=== PATIENT | male | born 1960 | race Two or more races ===

== ENCOUNTER 2021-09-20 20:05 | Emergency (ER) | payer OTHER ==
[~2021-09-20] VITALS: Ht 165.1 cm; Wt 68.0 kg
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
--- NOTE | 2021-09-20 20:29 | NUR ---
BLANKET FOLDER AT BEDSIDE FOR WOUND CLEANING
[2021-09-20] MEDS ORDERED: TDAP [DIPH/PERTUSSIS/TET] 0.5 ML VIAL IM ONE (20:30)
[2021-09-20] MEDS ORDERED: BACITRACIN ZINC OINT PACKET 1 EA PACKET TP ONE (20:30)
[2021-09-20] MEDS: TDAP [DIPH/PERTUSSIS/TET] 0.5 ML VIAL IM ONE (20:34)
[2021-09-20] MEDS: BACITRACIN ZINC OINT PACKET 1 EA PACKET TP ONE (20:35)
[2021-09-20] MEDS: LIDOCAINE 1% INJ 50 ML MDV IJ ONE (20:35)
[2021-09-20] MEDS ORDERED: ONDANSETRON HCL/PF 4 MG/2 ML VIAL ONE (20:56)
[2021-09-20] MEDS ORDERED: PIPERACILLIN /TAZOBACTAM 3.375 G VIAL IV ONE (20:57)
[2021-09-20] MEDS ORDERED: MORPHINE SULFATE INJ 4 MG/ML DISP.SYRIN ONE (20:57)
--- NOTE | 2021-09-20 21:00 | NUR ---
IV LINE ESTABLISHED, LAC 20G
[2021-09-20] MEDS: IV NS 0.9% 1,000 ML IV ONE (21:17)
[2021-09-20] MEDS: PIPERACILLIN /TAZOBACTAM 3.375 G in IV D5W 50 ML IV ONE (21:18)
[2021-09-20] MEDS: MORPHINE SULFATE INJ 2 MG/ML DISP.SYRIN IV ONE (21:18)
[2021-09-20] MEDS: ONDANSETRON HCL/PF 4 MG/2 ML VIAL IV ONE (21:18)
--- NOTE | 2021-09-20 21:29 | NUR ---
PT AMBULATED TO BATHROOM, STEADY GAIT NOTED
--- NOTE | 2021-09-20 22:10 | NUR ---
IV removed. Catheter intact and site benign. Pressure and 4x4 applied to site. No bleeding noted.
[2021-09-20] MEDS ORDERED: AMOX-430 PO (22:12)
[2021-09-20] MEDS ORDERED: IBUP-1955 PO (22:12)
--- NOTE | 2021-09-20 22:17 | NUR ---
Patient does not wish to proceed with medical care recommended by Dr. Hernandez. Patient given information related to possible complications, up to and including , which could occur as a result of leaving the hospital at this time. Patient verbalizes understanding of risks involved due to leaving against medical advice. Patient has signed AMA form.
[2021-09-20 22:18] VITALS: BP 114/65
== END 2021-09-20 22:28 | disposition left against medical advice (07) ==
LOC: ER 20:07
DX: S81.812A Laceration without foreign body, left lower leg, initial encounter (principal); W54.0XXA Bitten by dog, initial encounter; Y93.89 Activity, other specified; Y92.89 Other specified places as the place of occurrence of the external cause; Y99.8 Other external cause status
CPT/HCPCS: 73590; 90471; 90715; 96374; 96375; 99284; A6403; J2270; J2405; J2543 ×2; J7060